=== PATIENT | male | born 2000 | race Caucasian/White ===

== ENCOUNTER 2020-01-25 16:04 | Emergency (ER) | payer OTHER ==
[~2020-01-25] VITALS: Ht 180.3 cm; Wt 68.0 kg
[2020-01-25] MEDS ORDERED: CRUTCH2 XX (17:46)
[2020-01-25] MEDS ORDERED: KETO10 PO (17:47)
[2020-01-25] MEDS ORDERED: Norco 5-325 Ta1 EACH PO (17:47)
== END 2020-01-25 18:11 | disposition home or self-care (01) ==
LOC: ER 16:04
DX: S82.52XA Displaced fracture of medial malleolus of left tibia, initial encounter for closed fracture (principal); F17.220 Nicotine dependence, chewing tobacco, uncomplicated; Z88.0 Allergy status to penicillin; Z88.8 Allergy status to other drugs, medicaments and biological substances; V29.9XXA Motorcycle rider (driver) (passenger) injured in unspecified traffic accident, initial encounter
CPT/HCPCS: 29515; 73562-LT; 73610; 90714; 99284-25

== ENCOUNTER 2020-02-04 09:08 | Day surgery (SDC) | payer OTHER ==
[~2020-02-04] VITALS: Ht 180.3 cm; Wt 66.7 kg
[~2020-02-04 09:08] MED LIST: CRUTCH2 XX; KETO10 PO; Norco 5-325 Ta1 EACH PO
== END 2020-02-04 12:46 | disposition home or self-care (01) ==
LOC: ORSCSDS 09:08
PROVIDERS: Orthopaedic Surgery
PROC: 0QSH04Z Reposition Left Tibia with Internal Fixation Device, Open Approach (ICD-10-PCS; principal; 2020-02-04 10:40)
DX: S82.52XA Displaced fracture of medial malleolus of left tibia, initial encounter for closed fracture (principal); M25.562 Pain in left knee
CPT/HCPCS: A9270-GY; C1713; C1769; J0171; J1100; J2250; J2405; J2704; J3010; J3370; J7120

== ENCOUNTER 2020-12-17 16:14 | Emergency (ER) | payer OTHER ==
[~2020-12-17] VITALS: Ht 180.3 cm; Wt 65.8 kg
== END 2020-12-17 19:49 | disposition home or self-care (01) ==
LOC: ER 16:14
DX: T15.92XA Foreign body on external eye, part unspecified, left eye, initial encounter (principal); F17.220 Nicotine dependence, chewing tobacco, uncomplicated; Z88.0 Allergy status to penicillin; Z88.1 Allergy status to other antibiotic agents; Z79.899 Other long term (current) drug therapy
CPT/HCPCS: 99282; A9270

== ENCOUNTER 2021-03-30 05:02 | Emergency (ER) | payer OTHER ==
[~2021-03-30] VITALS: Ht 182.9 cm; Wt 65.8 kg
[2021-03-30 05:34] LABS: BASOPHILS ABSOLUTE AUTO 0.04 K/mm3 (0.00-0.23); BASOPHILS PERCENT AUTO 1 % (0-2); EOSINOPHILS ABSOLUTE AUTO 0.06 K/mm3 (0.00-0.68); EOSINOPHILS PERCENT AUTO 1 % (0-6); Hematocrit 45.4 % (37.0-53.0); Hemoglobin 15.2 g/dL (13.5-17.5); IMMATURE GRAN ABSOLUTE AUTO 0.02 K/mm3 (0.00-0.10); IMMATURE GRAN PERCENT AUTO 0 % (0-1); LYMPHOCYTES ABSOLUTE AUTO 1.93 K/mm3 (0.84-5.20); LYMPHOCYTES PERCENT AUTO 29 % (21-46); MONOCYTES ABSOLUTE AUTO 0.54 K/mm3 (0.16-1.47); MONOCYTES PERCENT AUTO 8 % (4-13); Mean Corpuscular HGB 30.1 pg (26.0-34.0); Mean Corpuscular HGB Conc 33.5 g/dL (31.5-36.5); Mean Corpuscular Volume 90 fL (80-100); Mean Platelet Volume 8.9 fL (9.1-12.4); NEUTROPHILS ABSOLUTE AUTO 4.04 K/mm3 (1.96-9.15); NEUTROPHILS PERCENT AUTO 61 % (41-73); Platelet Count 283 K/mm3 (150-400); Red Blood Cell Count 5.05 M/mm3 (4.30-5.90); White Blood Cell Count 6.63 K/mm3 (4.00-11.30)
[2021-03-30 05:55] LABS: Alanine Aminotransfer (ALT/SGP 21 U/L (12-78); Albumin, Blood 4.2 g/dL (3.4-5.0); Alk Phos 74 U/L (50-136); Anion Gap 6 mmol/L (6-16); Aspartate Aminotrans (AST/SGOT 14 U/L (12-37); Bilirubin, Total 0.5 mg/dL (0.1-1.0); Blood Urea Nitrogen 18 mg/dL (8-24); Bun/Creatinine Ratio 18.1 (12.0-20.0); CO2, Blood 28 mmol/L (21-32); Calcium, Blood 9.9 mg/dL (8.5-10.1); Chloride, Blood 106 mmol/L (98-108); Glomerular Filtration Rate >60 (60-); Glucose, Blood 111 mg/dL (70-99); Sodium, Blood 140 mmol/L (136-145); Total Protein, Blood 8.2 g/dL (6.4-8.2); Troponin I <0.015 ng/mL (0.000-0.040)
[2021-03-30] MEDS ORDERED: IBUP600 PO (07:28)
[2021-03-30] MEDS ORDERED: PRED20 PO (07:28)
== END 2021-03-30 07:48 | disposition home or self-care (01) ==
LOC: ER 05:02
PROVIDERS: Student in an Organized Health Care Education/Training Program
DX: R07.2 Precordial pain (principal); F17.220 Nicotine dependence, chewing tobacco, uncomplicated; M79.622 Pain in left upper arm; Z88.0 Allergy status to penicillin; Z88.1 Allergy status to other antibiotic agents; Z98.890 Other specified postprocedural states
CPT/HCPCS: 36415; 71046; 80053; 83690; 84484; 85025; 93005; 93010; 99285-25